=== PATIENT | male | born 1980 | race Two or more races ===

== ENCOUNTER 2017-04-02 19:34 | Emergency (ER) | payer OTHER ==
[~2017-04-02] VITALS: Ht 160 cm; Wt 65.8 kg
[~2017-04-02 19:34] MED LIST: ACET325T9 PO; SULF1TAB24 PO
[2017-04-02 19:50] VITALS: BP 143/90
[2017-04-02] MEDS ORDERED: AMOX875T PO (20:41)
[2017-04-02] MEDS ORDERED: LIDO20SO PO (20:41)
--- NOTE | 2017-04-02 20:42 | PHYS DOC ---
Past Medical History Past Medical History: GERD, TB, Other Additional Past Medical Histor: Ulcers , back pain Past Surgical History: No Surgical History Alcohol Use: None Drug Use: None Adult General Chief Complaint Chief Complaint: SORE THROAT HPI HPI Patient is a 36 year old male with history of tuberculosis and treated, acid reflex, who presents today with sore throat and sores in the mouth that began 3 days ago. Patient denies any fever or coughing. Review of Systems Review of Systems Constitutional: See history of present illness Eyes: Denies change in visual acuity, redness, or eye pain [] HENT: Sores in the mouth and sore throat [] Respiratory: Denies cough or shortness of breath [] Cardiovascular: No additional information not addressed in HPI [] GI: Denies abdominal pain, nausea, vomiting, bloody stools or diarrhea [] : Denies dysuria or hematuria [] Musculoskeletal: Denies back pain or joint pain [] Integument: Denies rash or skin lesions [] Neurologic: Denies headache, focal weakness or sensory changes [] Endocrine: Denies polyuria or polydipsia [] Allergies Allergies Allergies Coded Allergies Type Severity Reaction Last Updated Verified No Known Drug Allergies 09/16/16 No Physical Exam Physical Exam Constitutional: Well developed, well nourished, no acute distress, non-toxic appearance. [] HENT: Normocephalic, atraumatic, bilateral external ears normal, oropharynx moist, no oral exudates, nose normal. [] moderate erythema to posterior pharynx stomatitis lesion on lower inner lip Eyes: PERRLA, EOMI, conjunctiva normal, no discharge. [] Neck: Normal range of motion, no tenderness, supple, no stridor. [] Cardiovascular:Heart rate regular rhythm, no murmur [] Lungs & Thorax: Bilateral breath sounds clear to auscultation [] Abdomen: Bowel sounds normal, soft, no tenderness, no masses, no pulsatile masses. [] Skin: Warm, dry, no erythema, no rash. [] Back: No tenderness, no CVA tenderness. [] Extremities: No tenderness, no cyanosis, no clubbing, ROM intact, no edema. [] Neurologic: Alert and oriented X 3, normal motor function, normal sensory function, no focal deficits noted. [] Psychologic: Affect normal, judgement normal, mood normal. [] Current Patient Data Vital Signs Vital Signs Date Time Temp Pulse Resp B/P (MAP) Pulse Ox O2 Delivery O2 Flow Rate FiO2 04/02/17 19:50 98.1 72 20 97 Room Air 98.1 EKG EKG [] Radiology/Procedures Radiology/Procedures [] Course & Med Decision Making Course & Med Decision Making Pertinent Labs and Imaging studies reviewed. (See chart for details) Patient has stomatitis and pharyngitis. Discharged with amoxicillin and lidocaine viscous. Follow-up with his own PCP in 1-2 weeks. Provided return precautions and discharged in stable condition. Dragon Disclaimer Dragon Disclaimer This electronic medical record was generated, in whole or in part, using a voice recognition dictation system. Departure Departure Impression: Primary Impression: Pharyngitis Additional Impression: Stomatitis Disposition: 01 HOME, SELF-CARE Condition: STABLE Referrals: EMILIANO YU MD (PCP) Follow-up with your own doctor in one week Patient Instructions: Stomatitis, [id number], Viral and Bacterial Pharyngitis , [id number] Additional Instructions: You were seen for pharyngitis and stomatitis. Please complete your antibiotics. Take Tylenol/ Motrin as needed for pain or fever. Use the prescribed lidocaine as needed for pain in your mouth and throat. Follow-up with the primary care doctor in the next 7 days. Scripts Lidocaine Hcl (LIDOCAINE HCL VISCOUS) 20 Mg/1 Ml Solution 5 ML PO TID, #100 ML Prov: LOWELL PROCTOR APRN 04/02/17 Amoxicillin (AMOXICILLIN) 875 Mg Tablet 1 TAB PO BID, #20 TAB Prov: LOWELL PROCTOR APRN 04/02/17 Problem Qualifiers Primary Impression: Pharyngitis Pharyngitis/tonsillitis etiology: unspecified etiology Qualified Codes: J02.9 - Acute pharyngitis, unspecified LOWELL PROCTOR APRN April 02, 2017 20:42
[2017-04-03 07:55] LABS: NEGATIVE OBC STREP NEG; POSITIVE OBC STREP POS
== END 2017-04-02 20:52 | disposition home or self-care (01) ==
LOC: ER 19:34
DX: J02.9 Acute pharyngitis, unspecified (principal); K12.1 Other forms of stomatitis; K21.9 Gastro-esophageal reflux disease without esophagitis
CPT/HCPCS: 87070; 87880; 99283

== ENCOUNTER 2017-08-14 13:38 | Emergency (ER) | payer OTHER ==
[~2017-08-14] VITALS: Ht 160 cm; Wt 65.8 kg
[~2017-08-14 13:38] MED LIST changes: +AMOX875T PO; +LIDO20SO PO
[2017-08-14 13:40] VITALS: BP 146/97
--- NOTE | 2017-08-14 13:50 | PHYS DOC ---
Past Medical History Past Medical History: GERD, TB, Other Additional Past Medical Histor: Ulcers , back pain Past Surgical History: No Surgical History Alcohol Use: None Drug Use: None Adult General Chief Complaint Chief Complaint: SORE THROAT HPI HPI Patient is a 36 year old female presents to the ED complaining of sore throat 3 days. Patient states he has had a sore throat off and on over the last 6 months. Complains of pain with swallowing. Associated symptoms include rhinorrhea. Denies cough, shortness of breath, chest pain, dizziness, weakness, fever, headache or vision changes. Review of Systems Review of Systems Constitutional: Denies fever or chills [] Eyes: Denies change in visual acuity, redness, or eye pain [] HENT: Complains of sore throat. [] Respiratory: Denies cough or shortness of breath [] Cardiovascular: No additional information not addressed in HPI [] GI: Denies abdominal pain, nausea, vomiting, bloody stools or diarrhea [] : Denies dysuria or hematuria [] Musculoskeletal: Denies back pain or joint pain [] Integument: Denies rash or skin lesions [] Neurologic: Denies headache, focal weakness or sensory changes [] Endocrine: Denies polyuria or polydipsia [] Allergies Allergies Allergies Coded Allergies Type Severity Reaction Last Updated Verified No Known Drug Allergies 09/16/16 No Physical Exam Physical Exam Constitutional: Well developed, well nourished, no acute distress, non-toxic appearance. [] HENT: Normocephalic, atraumatic, bilateral external ears normal, oropharynx moist, MILD PHARYNGEAL ERYTHEMA. no oral exudates, nose normal. [] Eyes: PERRLA, EOMI, conjunctiva normal, no discharge. [] Neck: Normal range of motion, no tenderness, supple, no stridor. [] Cardiovascular:Heart rate regular rhythm, no murmur [] Lungs & Thorax: Bilateral breath sounds clear to auscultation [] Abdomen: Bowel sounds normal, soft, no tenderness, no masses, no pulsatile masses. [] Skin: Warm, dry, no erythema, no rash. [] Back: No tenderness, no CVA tenderness. [] Extremities: No tenderness, no cyanosis, no clubbing, ROM intact, no edema. [] Neurologic: Alert and oriented X 3, normal motor function, normal sensory function, no focal deficits noted. [] Psychologic: Affect normal, judgement normal, mood normal. [] Current Patient Data Vital Signs Vital Signs Date Time Temp Pulse Resp B/P (MAP) Pulse Ox O2 Delivery O2 Flow Rate FiO2 08/14/17 13:40 98.1 96 18 94 Room Air 98.1 Lab Values Laboratory Tests Test 08/14/17 13:53 Influenza Type A Antigen Negative (NEGATIVE) Influenza Type B Antigen Negative (NEGATIVE) EKG EKG [] Radiology/Procedures Radiology/Procedures [] Course & Med Decision Making Course & Med Decision Making Pertinent Labs and Imaging studies reviewed. (See chart for details) []Negative rapid strep. Will treat with Medrol Dosepak outpatient. Patient had similar symptoms twice in the past 6 months. Discussed follow-up with PCP and possible specialist if symptoms continue. Discussed reasons to return to the ED. Patient understands and agrees with plan. Dragon Disclaimer Dragon Disclaimer This electronic medical record was generated, in whole or in part, using a voice recognition dictation system. Departure Departure Impression: Primary Impression: Sore throat Additional Impression: Viral illness Disposition: 01 HOME, SELF-CARE Condition: STABLE Referrals: EMILIANO YU MD (PCP) Patient Instructions: Viral and Bacterial Pharyngitis Scripts Methylprednisolone (MEDROL) 4 Mg Tab.ds.pk 1 PKG PO UD, #1 PKG Prov: MARKO DOTSON 08/14/17 Problem Qualifiers MARKO DOTSON Aug 14, 2017 13:50
[2017-08-14 14:20] LABS: OBC FLU VALID
[2017-08-14] MEDS ORDERED: METH4TAB2 PO (14:36)
[2017-08-15 08:27] LABS: NEGATIVE OBC STREP NEG; POSITIVE OBC STREP POS
== END 2017-08-14 14:37 | disposition home or self-care (01) ==
LOC: ER 13:38
DX: J02.9 Acute pharyngitis, unspecified (principal); B34.9 Viral infection, unspecified; K21.9 Gastro-esophageal reflux disease without esophagitis
CPT/HCPCS: 87070; 87804; 87880; 99284

== ENCOUNTER 2017-09-25 11:53 | Emergency (ER) | payer OTHER ==
[~2017-09-25] VITALS: Ht 160 cm; Wt 67.1 kg
[~2017-09-25 11:53] MED LIST changes: +METH4TAB2 PO
[2017-09-25 12:20] VITALS: BP 113/67
[2017-09-25 12:55] LABS: NEGATIVE OBC STREP NEG; POSITIVE OBC STREP POS
--- NOTE | 2017-09-25 13:26 | PHYS DOC ---
Past Medical History Past Medical History: GERD, Hypertension, TB, Other Additional Past Medical Histor: Ulcers , back pain Past Surgical History: No Surgical History Alcohol Use: None Drug Use: None Adult General Chief Complaint Chief Complaint: SORE THROAT HPI HPI Patient is a 36 year old male presents to the emergency room stating he's had a sore throat with a fever for the last 3 days. He states he has not taken anything for his temperature nor has he taken anything for the sore throat. He does state he has generalized body aches and discomfort. Denies any frontal or maxillary sinus tenderness denies any cough or congestion. Review of Systems Review of Systems Constitutional: Fever Eyes: Denies change in visual acuity, redness, or eye pain [] HENT: Denies nasal congestion C/o sore throat [] Respiratory: Denies cough or shortness of breath [] Cardiovascular: No additional information not addressed in HPI [] GI: Denies abdominal pain, nausea, vomiting, bloody stools or diarrhea [] : Denies dysuria or hematuria [] Musculoskeletal: Denies back pain or joint pain [] Integument: Denies rash or skin lesions [] Neurologic: Denies headache, focal weakness or sensory changes [] Endocrine: Denies polyuria or polydipsia [] All other systems were reviewed and found to be within normal limits, except as documented in this note. Allergies Allergies Allergies Coded Allergies Type Severity Reaction Last Updated Verified codeine Allergy Mild "RASH" 09/25/17 No Physical Exam Physical Exam Constitutional: Well developed, well nourished, no acute distress, non-toxic appearance. [] HENT: Normocephalic, atraumatic, bilateral external ears normal, oropharynx moist, no oral exudates, nose normal. Bilateral tympanic membranes appear to be normal. Throat with exudate noted on the right with erythematous. Eyes: PERRLA, EOMI, conjunctiva normal, no discharge. [] Neck: Normal range of motion, no tenderness, supple, no stridor. [] Cardiovascular:Heart rate regular rhythm, no murmur [] Lungs & Thorax: Bilateral breath sounds clear to auscultation [] Extremities: No tenderness, no cyanosis, no clubbing, ROM intact, no edema. [] Neurologic: Alert and oriented X 3, normal motor function, normal sensory function, no focal deficits noted. [] Psychologic: Affect normal, judgement normal, mood normal. [] Current Patient Data Vital Signs Vital Signs Date Time Temp Pulse Resp B/P (MAP) Pulse Ox O2 Delivery O2 Flow Rate FiO2 09/25/17 12:20 99.7 99 20 97 Room Air 99.7 Lab Values Laboratory Tests Test 09/25/17 12:18 Group A Streptococcus Rapid Negative (NEGATIVE) EKG EKG [] Radiology/Procedures Radiology/Procedures [] Course & Med Decision Making Course & Med Decision Making Pertinent Labs and Imaging studies reviewed. (See chart for details) Rapid strep was negative. Patient with no anterior cervical adenopathy noted. Patient was provided with discharge instructions ymchal regimens and follow-up recommendations. Recommended ibuprofen and Tylenol for pain and discomfort also recommended constructs and throat lozenges to soothe the throat with warm salt water gargles 4 times a day. I've spoken with the patient and/or caregivers. I've explained the patient's condition, diagnosis and treatment plan based on information available to me at this time. I've answered the patient's and/or caregivers questions and addressed any concerns. The patient and/or caregivers have a good understanding the patient's diagnosis, condition and treatment plan as can be expected at this point. Vital signs have been stabilized. The patient's condition is stable for discharge from the emergency department. The patient will pursue further outpatient evaluation with her primary care provider or other designated consulting physician as outlined in the discharge instructions. Patient and/or caregivers are agreeable to this plan of care and follow-up instructions have been explained in detail. The patient and/or caregivers have received these instructions in written format and expressed understanding of these discharge instructions. The patient and her caregivers are aware that if any significant change in condition or worsening of symptoms should prompt him to immediately return to this of the closest emergency department. If an emergent department is not readily available I would encourage him to call 911.[] Dragon Disclaimer Dragon Disclaimer This electronic medical record was generated, in whole or in part, using a voice recognition dictation system. Departure Departure Impression: Primary Impression: Pharyngitis Disposition: HOME, SELF-CARE Condition: STABLE Referrals: EMILIANO YU MD (PCP) Patient Instructions: Viral and Bacterial Pharyngitis, [id number] Additional Instructions: Activity as tolerated. Tylenol or ibuprofen for fever chills otherwise body aches and discomfort. Cough drops and throat lozenges without soothe the throat. Warm salt water gargles 4 times a day. Follow-up primary care physician in the next 3-5 days. Return back to emergency percent symptoms become worse. ADELINA BUTT APRN Sep 25, 2017 13:26
== END 2017-09-25 13:50 | disposition home or self-care (01) ==
LOC: ER 11:53
DX: J02.9 Acute pharyngitis, unspecified (principal); K21.9 Gastro-esophageal reflux disease without esophagitis; I10 Essential (primary) hypertension; Z88.5 Allergy status to narcotic agent
CPT/HCPCS: 87070; 87880; 99283

== ENCOUNTER 2018-07-11 13:36 | Emergency (ER) | payer OTHER ==
[~2018-07-11] VITALS: Ht 177.8 cm; Wt 67.1 kg
[2018-07-11] MEDS ORDERED: MECL25TA3 PO (14:51)
--- NOTE | 2018-07-11 14:56 | PHYS DOC ---
Past Medical History Past Medical History: GERD, Hypertension, TB, Other Additional Past Medical Histor: Ulcers , back pain Past Surgical History: No Surgical History Alcohol Use: None Drug Use: None Adult General Chief Complaint Chief Complaint: DIZZY/LIGHT HEADED HPI HPI Patient is a 37 year old male presenting with chief complaint of posterior headache as well as dizziness he feels like the room is spinning when he turns his head around a certain direction and in addition to that he is feeling some radiating in his left ear she says he does have frequent headaches almost every day but usually not associated with dizziness with ringing in the ears no double vision arms and legs feel normal no numbness or tingling symptoms are overall pretty mild to moderate Review of Systems Review of Systems Constitutional: Denies fever or chills [] Eyes: Denies change in visual acuity, redness, or eye pain [] Yes GI: Denies abdominal pain, nausea, vomiting, bloody stools or diarrhea [] : Denies dysuria or hematuria [] Neurologic: Denies headache, focal weakness or sensory changes [] Endocrine: Denies polyuria or polydipsia [] All other systems were reviewed and found to be within normal limits, except as documented in this note. Current Medications Current Medications Current Medications Medications (Trade) Dose Ordered Sig/Adeline Start Time Stop Time Status Last Admin Dose Admin Ketorolac Tromethamine (Toradol 15mg Vial) 15 mg 1X ONCE 07/11/18 15:00 07/11/18 15:01 Meclizine HCl (Antivert) 25 mg 1X ONCE 07/11/18 15:00 07/11/18 15:01 Allergies Allergies Allergies Coded Allergies Type Severity Reaction Last Updated Verified codeine Allergy Mild "RASH" 09/25/17 No Physical Exam Physical Exam Constitutional: Well developed, well nourished, no acute distress, non-toxic appearance. [] HENT: Normocephalic, atraumatic, bilateral external ears normal, oropharynx moist, no oral exudates, nose normal. [] Eyes: PERRLA, EOMI, conjunctiva normal, no discharge. [] Neck: Normal range of motion, no tenderness, supple, no stridor. [] Cardiovascular:Heart rate regular rhythm, no murmur [] Lungs & Thorax: Bilateral breath sounds clear to auscultation [] Abdomen: Bowel sounds normal, soft, no tenderness, no masses, no pulsatile masses. [] Skin: Warm, dry, no erythema, no rash. [] Extremities: No tenderness, no cyanosis, no clubbing, ROM intact, no edema. [] Neurologic: Alert and oriented X 3, normal motor function, normal sensory function, no focal deficits noted. [][id number] in tact crnaial nerves are intact. Psychologic: Affect normal, judgement normal, mood normal. [] Current Patient Data Vital Signs Vital Signs Date Time Temp Pulse Resp B/P (MAP) Pulse Ox O2 Delivery O2 Flow Rate FiO2 07/11/18 14:10 98.0 72 20 141/90 (107) 97 Room Air 98.0 EKG EKG [] Radiology/Procedures Radiology/Procedures [] Course & Med Decision Making Course & Med Decision Making Pertinent Labs and Imaging studies reviewed. (See chart for details) []37-year-old male presenting with some mild posterior headache as well as the ear is ringing in the left and some dizziness that sounds a peripheral vertigo patient was given meclizine and Toradol recheck a blood sugar he is very well- appearing overall I suspect peripheral vertigo the patient was reassured and was improving somewhat at the time of discharge Dragon Disclaimer Dragon Disclaimer This electronic medical record was generated, in whole or in part, using a voice recognition dictation system. Departure Departure Impression: Primary Impression: Vertigo Disposition: 01 HOME, SELF-CARE Condition: IMPROVED Patient Instructions: Vertigo, [id number] Scripts Meclizine Hcl (MECLIZINE HCL) 25 Mg Tablet 25 MG PO PRN TID PRN for DIZZINESS, #30 dizziness Prov: GERALD OLEARY MD 07/11/18 GERALD OLEARY MD Jul 11, 2018 14:56
[2018-07-11] MEDS ORDERED: MECLIZINE HCL 12.5 MG TABLET. PO ONE (15:00)
[2018-07-11] MEDS ORDERED: KETOROLAC 15 MG/ML VIAL. IV ONE (15:00)
[2018-07-11 15:35] VITALS: BP 127/78
== END 2018-07-11 15:49 | disposition home or self-care (01) ==
LOC: ER 13:36
DX: R42 Dizziness and giddiness (principal); R51 Headache; H92.02 Otalgia, left ear; I10 Essential (primary) hypertension; K21.9 Gastro-esophageal reflux disease without esophagitis; Z88.5 Allergy status to narcotic agent
CPT/HCPCS: 82962; 96374; 99284; J1885; J8597

== ENCOUNTER 2018-12-15 13:56 | Emergency (ER) | payer OTHER ==
[~2018-12-15] VITALS: Ht 160 cm; Wt 76.2 kg
[~2018-12-15 13:56] MED LIST changes: +MECL25TA3 PO
[2018-12-15 14:14] VITALS: BP 127/78
[2018-12-15] MEDS ORDERED: AMOX875T PO (14:41)
--- NOTE | 2018-12-15 14:41 | PHYS DOC ---
Past Medical History Past Medical History: GERD, Hypertension, TB, Other Additional Past Medical Histor: Ulcers , back pain (RUDY MONTENEGRO APRN) Past Surgical History: No Surgical History (RUDY MONTENEGRO APRN) Alcohol Use: None Drug Use: None (RUDY MONTENEGRO APRN) Adult General Chief Complaint Chief Complaint: SORE THROAT HPI HPI Patient is a 38 year old male, accompanied by his family, who presents to the ER with complaints of right ear pain, and sore throat with nasal congestion for the last week. Pt denies any cough, shortness of breath, nausea, vomiting, diarrhea, abdominal pain, or rash. Pt states he has felt hot but has not taken his temperature. (RUDY MONTENEGRO APRN) Review of Systems Review of Systems Constitutional: Denies fever or chills, reports feeling hot [] Eyes: Denies redness, or eye pain [] HENT: See HPI Respiratory: Denies cough or shortness of breath [] Cardiovascular: No additional information not addressed in HPI [] GI: Denies abdominal pain, nausea, vomiting, or diarrhea [] Musculoskeletal: Denies back pain or joint pain [] Integument: Denies rash or skin lesions [] Neurologic: Denies headache, focal weakness or sensory changes [] (RUDY MONTENEGRO APRN) Allergies Allergies Allergies Coded Allergies Type Severity Reaction Last Updated Verified codeine Allergy Mild "RASH" 09/25/17 No (LUIZ ROSA DO) Physical Exam Physical Exam Constitutional: Well developed, well nourished, no acute distress, non-toxic appearance. [] HENT: Normocephalic, atraumatic, bilateral external ears normal, L TM normal, R TM effusion with purulent fluid no perforation noted, erythema of posterior pharynx, oropharynx moist, no oral exudates, nose normal. [] Eyes: PERRLA, conjunctiva normal, no discharge. [] Neck: Normal range of motion, right anterior lymph node TTP, no stridor. [] Cardiovascular:Heart rate regular rhythm, no murmur [] Lungs & Thorax: Bilateral breath sounds clear to auscultation [] Skin: Warm, dry, no erythema, no rash. [] Extremities: No cyanosis, no clubbing, ROM intact Neurologic: Alert and oriented X 3, normal motor function, normal sensory function, no focal deficits noted. [] Psychologic: Affect normal, judgement normal, mood normal. [] (RUDY MONTENEGRO APRN) Current Patient Data Vital Signs Vital Signs Date Time Temp Pulse Resp B/P (MAP) Pulse Ox O2 Delivery O2 Flow Rate FiO2 12/15/18 14:14 98.7 101 18 127/78 (94) 100 Room Air 98.7 (ROSALUIZ ROSS DO) EKG EKG [] (RUDY MONTENEGRO APRN) Radiology/Procedures Radiology/Procedures [] (RUDY MONTENEGRO APRN) Course & Med Decision Making Course & Med Decision Making Pertinent Labs and Imaging studies reviewed. (See chart for details) Dx: R otitis media, URI, pharyngitis Prescription written for amoxicillin. Tylenol or ibuprofen as needed for pain/ fever. Increase fluids. Follow up with PCP if sx persist, return to ER if sx worsen. Patient verbalized an understanding of home care, medications, follow-up, and return to ED instructions and was in agreement with the plan of care. [] (RUDY MONTENEGRO APRN) Dragon Disclaimer Dragon Disclaimer This electronic medical record was generated, in whole or in part, using a voice recognition dictation system. (RUDY MONTENEGRO APRN) Departure Departure Impression: Primary Impression: Pharyngitis Additional Impressions: URI (upper respiratory infection) OM (otitis media), acute Disposition: 01 HOME, SELF-CARE Condition: STABLE Referrals: EMILIANO YU MD (PCP) Patient Instructions: Otitis Media, Adult, Upper Respiratory Infection, Adult, [id number] Additional Instructions: Fill prescription(s) and use as directed. Recommend use of a Cool mist humidifier in room at bedtime. Alternate Tylenol or ibuprofen as needed for pain /fever. Increase clear fluids. Avoid airway triggers such as smoke, fragrance, dust, and pollen. May take [id number] cough suppressants as needed. Follow -up with your primary care doctor symptoms persist, return to the ER symptoms worsen. Scripts Amoxicillin (AMOXICILLIN) 875 Mg Tablet 1 TAB PO BID, #20 TAB 0 Refills Prov: RUDY MONTENEGRO APRN 12/15/18 Attending Signature Attending Signature I have reviewed the PA/DELIVERER MERCHANDISE's note and plan of care. I was available for consultation as needed during the patient's visit in the emergency department. I agree with the clinical impression, plan, and disposition. (LUIZ ROSA DO) Problem Qualifiers Primary Impression: Pharyngitis Pharyngitis/tonsillitis etiology: unspecified etiology Qualified Codes: J02.9 - Acute pharyngitis, unspecified Additional Impressions: URI (upper respiratory infection) URI type: unspecified URI Qualified Codes: J06.9 - Acute upper respiratory infection, unspecified OM (otitis media), acute Otitis media type: suppurative Laterality: right Recurrence: not specified as recurrent Spontaneous tympanic membrane rupture: without spontaneous rupture Qualified Codes: H66.001 - Acute suppurative otitis media without spontaneous rupture of ear drum, right ear RUDY MONTENEGRO APRN Dec 15, 2018 14:41 LUIZ ROSA DO Dec 15, 2018 15:55
== END 2018-12-15 14:53 | disposition home or self-care (01) ==
LOC: ER 13:56
DX: H66.001 Acute suppurative otitis media without spontaneous rupture of ear drum, right ear (principal); J02.9 Acute pharyngitis, unspecified; K21.9 Gastro-esophageal reflux disease without esophagitis; I10 Essential (primary) hypertension; Z88.5 Allergy status to narcotic agent
CPT/HCPCS: 99283

== ENCOUNTER 2019-10-13 20:24 | Emergency (ER) | payer OTHER ==
[~2019-10-13] VITALS: Ht 167.6 cm; Wt 76.2 kg
[2019-10-13 20:41] VITALS: BP 127/78
--- NOTE | 2019-10-13 22:07 | PHYS DOC ---
Past Medical History Past Medical History: GERD, Hypertension, TB, Other Additional Past Medical Histor: Ulcers , back pain Past Surgical History: No Surgical History Alcohol Use: None Drug Use: None Adult General Chief Complaint Chief Complaint: EARACHE/EAR PAIN [facility] HPI Patient is a 38 year old male who presents to the emergency department with complaints of ane ulceration on the left side of his posterior lateral tongue for the last week. Patient also complains of left ear pain, and painful swallowing. He denies any decreased hearing, , patient states that one of his children had strep pharyngitis a week ago and he is concerned that he also has the illness. He denies any fever, and all pain, cough, shortness of breath, palpitations, chest pain, headache, nausea, vomiting, diarrhea, abdominal pain. Patient denies any difficulty swallowing. He currently rates his pain 8 out of 10 when he swallows. He denies alleviating factors. All other ROS is neg unless otherwise noted in HPI. Review of Systems Review of Systems See Above Allergies Allergies Allergies Coded Allergies Type Severity Reaction Last Updated Verified codeine Allergy Mild "RASH" 09/25/17 No Physical Exam Physical Exam See Above Constitutional: Well developed, well nourished, no acute distress, non-toxic appearance. [] HENT: Normocephalic, atraumatic, bilateral external ears normal, bilateral TMs normal, mild erythema of posterior pharynx, tonsils normal, oropharynx moist, no oral exudates, nose normal; 1 cm diameter apthous ulcer noted to posterior lateral left tongue, no surrounding gingival erythema or edema, no obvious dental infection or caries[] Eyes: PERRLA, EOMI, conjunctiva normal, no discharge. [] Neck: Normal range of motion, no tenderness, supple, no stridor. [] Cardiovascular:Heart rate regular rhythm, no murmur [] Lungs & Thorax: Bilateral breath sounds clear to auscultation respirations regular, speaking full sentences [] Skin: Warm, dry, no erythema, no rash. [] Back: No tenderness Extremities: No cyanosis, ROM intact Neurologic: Alert and oriented X 3, no focal deficits noted. [] Psychologic: Affect normal, judgement normal, mood normal. [] Current Patient Data Vital Signs Vital Signs Date Time Temp Pulse Resp B/P (MAP) Pulse Ox O2 Delivery O2 Flow Rate FiO2 12/2/19 20:41 97.9 89 20 127/78 (94) 95 97.9 EKG EKG [] Radiology/Procedures Radiology/Procedures Rapid strep testing negative[] Course & Med Decision Making Course & Med Decision Making Pertinent Labs and Imaging studies reviewed. (See chart for details) [] Dragon Disclaimer Dragon Disclaimer This electronic medical record was generated, in whole or in part, using a voice recognition dictation system. Departure Departure Impression: Primary Impression: Pharyngitis Additional Impression: Aphthous ulcer of tongue Disposition: HOME, SELF-CARE Condition: STABLE Referrals: EMILIANO YU MD (PCP) Patient Instructions: Oral Ulcers, Viral and Bacterial Pharyngitis, [id number] Additional Instructions: Tylenol or ibuprofen as needed for pain. Recommend you follow a bland diet until the ulcer on your tongue and has healed completely. Avoid carbonated and acetic foods as well. Salt water gargles may help with throat and tongue discomfort. Follow-up with your primary care doctor in 1-2 days, return to the ER if symptoms worsen. Problem Qualifiers Primary Impression: Pharyngitis Pharyngitis/tonsillitis etiology: unspecified etiology Qualified Codes: J02.9 - Acute pharyngitis, unspecified RUDY MONTENEGRO SENIOR COPYWRITER Oct 13, 2019 22:07
== END 2019-10-13 22:20 | disposition home or self-care (01) ==
LOC: ER 20:24
DX: K12.0 Recurrent oral aphthae (principal); J02.9 Acute pharyngitis, unspecified; I10 Essential (primary) hypertension; K21.9 Gastro-esophageal reflux disease without esophagitis; Z86.11 Personal history of tuberculosis; Z88.5 Allergy status to narcotic agent
CPT/HCPCS: 87070; 87880; 99283

== ENCOUNTER 2021-01-06 11:20 | Emergency (ER) | payer OTHER ==
[~2021-01-06] VITALS: Ht 162.6 cm; Wt 73.0 kg
[~2021-01-06 11:20] MED LIST changes: +MECL-75 PO; -MECL25TA3 PO
--- NOTE | 2021-01-06 12:16 | RAD ---
EXAM: 3 Views Left Shoulder DATE: 01/06/2021 12:00 PM INDICATION: Reason: fall down 3 stairs last week, pain left shoulder / Spl. Instructions: / History: COMPARISON: No Prior FINDINGS: There is no evidence for acute fracture or dislocation. AC joint is congruent. Humeral head is not hi gh riding. Posterior lateral left sixth and seventh rib fractures are not well seen, possibly chronic . IMPRESSION: 1. No acute left shoulder fracture or dislocation. 2. Posterior lateral left sixth and seventh rib fractures are not well seen, possibly chronic. Electronically signed by: Byron Arango MD (01/06/2021 12:13 PM) [id number]
[2021-01-06] MEDS ORDERED: METH4TAB2 PO (12:49)
[2021-01-06] MEDS ORDERED: CYCL10TA2 PO (12:49)
[2021-01-06] MEDS ORDERED: NAPR-514 PO (12:49)
--- NOTE | 2021-01-06 12:50 | PHYS DOC ---
Past Medical History Past Medical History: GERD, Hypertension, TB, Other Additional Past Medical Histor: Ulcers , back pain Past Surgical History: No Surgical History Smoking Status: Never Smoker Alcohol Use: None Drug Use: None General Adult EDM: Chief Complaint: MECHANICAL FALL HPI: HPI: Patient is a 40 year old male who presents to the ED today complaining of a sharp intermittent 8 out of 10 left shoulder pain, symptoms began last week after he fell down 3 steps. Patient denies any loss of consciousness. States the pain is worse on range of motion. States immobilization has helped with the pain. Review of Systems: Review of Systems: Constitutional: Denies fever or chills. [] GI: Denies abdominal pain, nausea, vomiting, bloody stools or diarrhea. [] : Denies dysuria. [] Musculoskeletal: Reports left shoulder pain Integument: Denies rash. [] Neurologic: Denies headache, focal weakness or sensory changes. [] Psychiatric: Denies depression or anxiety. [] Heart Score: Risk Factors: Risk Factors: DM, Current or recent (<one month) smoker, HTN, HLP, family history of CAD, obesity. Risk Scores: Score 0 - 3: 2.5% MACE over next 6 weeks - Discharge Home Score 4 - 6: 20.3% MACE over next 6 weeks - Admit for Clinical Observation Score 7 - 10: 72.7% MACE over next 6 weeks - Early Invasive Strategies Allergies: Allergies: Allergies Coded Allergies Type Severity Reaction Last Updated Verified codeine Allergy Mild "RASH" 09/25/17 No Physical Exam: PE: Constitutional: Well developed, well nourished, no acute distress, non-toxic appearance. [] Skin: Warm, dry, no erythema, no rash. [] Back: No tenderness, no CVA tenderness. [] Extremities: Left shoulder with no obvious deformity, no edema, no ecchymosis. No tenderness on exam, full range of motion to the left shoulder. +2 left radial pulse. Cap refill less than 2 seconds in left fingers. Neurologic: Alert and oriented X 3, normal motor function, normal sensory function, no focal deficits noted. [] Psychologic: Affect normal, judgement normal, mood normal. [] Current Patient Data: Vital Signs: Vital Signs Date Time Temp Pulse Resp B/P (MAP) Pulse Ox O2 Delivery O2 Flow Rate FiO2 01/06/21 11:40 98.1 81 18 137/88 (104) 98 Room Air 98.1 EKG: EKG: [] Radiology/Procedures: Radiology/Procedures: []PROCEDURE: SHOULDER 2+V LEFT EXAM: 3 Views Left Shoulder DATE: 01/06/2021 12:00 PM INDICATION: Reason: fall down 3 stairs last week, pain left shoulder / Spl. Instructions: / History: COMPARISON: No Prior FINDINGS: There is no evidence for acute fracture or dislocation. AC joint is congruent. Humeral head is not high riding. Posterior lateral left sixth and seventh rib fractures are not well seen, possibly chronic. IMPRESSION: 1. No acute left shoulder fracture or dislocation. 2. Posterior lateral left sixth and seventh rib fractures are not well seen, possibly chronic. Electronically signed by: Byron Arango MD (01/06/2021 12:13 PM) [id number] DICTATED and SIGNED BY: BYRON ARANGO MD DATE: 01/06/21 [id number] Course & Med Decision Making: Course & Med Decision Making Pertinent Labs and Imaging studies reviewed. (See chart for details) This is a 40-year-old male patient presented to the ED today with left shoulder pain status post falling a week ago. Left shoulder x-rays were negative for any acute findings, noted for old fractures of the sixth and seventh posterior ribs. Patient denies any rib pain. No tenderness to the ribs on exam. Discharge to home. Follow-up with PCP/ orthopedic doctor. Ice elevation encouraged. Prescription for Medrol Dosepak naproxen and Flexeril provided Dragon Disclaimer: Dragon Disclaimer: This electronic medical record was generated, in whole or in part, using a voice recognition dictation system. Departure Departure Impression: Primary Impression: Fall down steps Qualified Codes: W10.8XXA - Fall (on) (from) other stairs and steps, initial encounter Additional Impression: Contusion of shoulder, left Qualified Codes: S40.012A - Contusion of left shoulder, initial encounter Disposition: 01 DC HOME SELF CARE/HOMELESS Condition: STABLE Referrals: EMILIANO YU MD (PCP) BHARATH MORENO MD follow up in 1 week Patient Instructions: Contusion, [id number] Additional Instructions: You were seen for left shoulder pain, your x-rays are negative for any acute findings, you were noted to have old fractures of the sixth and seventh ribs. Take the prescribed medications as ordered. Please follow-up with the provided orthopedic doctor or your own doctor in 1 to 2 weeks try to ice and elevate the extremity. Scripts Cyclobenzaprine Hcl (CYCLOBENZAPRINE HCL) 10 Mg Tablet 1 TAB PO TID, #30 TAB Prov: LOWELL PROCTOR APRN 01/06/21 Naproxen (NAPROXEN) 500 Mg Tablet 1 TAB PO BID for pain, #30 TAB 0 Refills Prov: LOWELL PROCTOR APRN 01/06/21 Methylprednisolone (MEDROL) 4 Mg Tab.ds.pk 1 PKG PO UD, #1 PKG Prov: LOWELL PROCTOR APRN 01/06/21 LOWELL PROCTOR APRN Jan 06, 2021 12:50
[2021-01-06 13:16] VITALS: BP 139/81
== END 2021-01-06 13:16 | disposition home or self-care (01) ==
LOC: ER 11:20
DX: S40.012A Contusion of left shoulder, initial encounter (principal); K21.9 Gastro-esophageal reflux disease without esophagitis; I10 Essential (primary) hypertension; Z88.5 Allergy status to narcotic agent; W10.8XXA Fall (on) (from) other stairs and steps, initial encounter; Y93.89 Activity, other specified; Y92.89 Other specified places as the place of occurrence of the external cause; Y99.8 Other external cause status
CPT/HCPCS: 73030; 99283

== ENCOUNTER 2021-11-16 14:40 | Emergency (ER) | payer OTHER ==
[~2021-11-16] VITALS: Ht 160 cm; Wt 76.2 kg
[~2021-11-16 14:40] MED LIST changes: +CYCL10TA19 PO; +NAPR-514 PO
[2021-11-16] MEDS ORDERED: IV NORMAL SALINE 1000ML BAG 1,000 ML IV ONE ×2 (17:00→19:00)
--- NOTE | 2021-11-16 17:10 | PHYS DOC ---
Past Medical History Past Medical History: GERD, Hypertension, TB, Other Additional Past Medical Histor: Ulcers , back pain Past Surgical History: No Surgical History Smoking Status: Never Smoker Alcohol Use: None Drug Use: None General Adult EDM: Chief Complaint: COUGH HPI: HPI: Patient is a 41 year old male who presents with cough, body aches, sore throat, fever x3 days. Patient denies chest pain, shortness of breath, nausea/vomiting/diarrhea. Patient reports he took Tylenol this morning for body aches. Temperature on arrival was 100.2. Patient states he was fully vaccinated for COVID-19. Denies all medical history. Review of Systems: Review of Systems: Constitutional: Denies fever or chills. [] Eyes: Denies change in visual acuity. [] HENT: Denies nasal congestion or sore throat. [] Respiratory: Denies cough or shortness of breath. [] Cardiovascular: Denies chest pain or edema. [] GI: Denies abdominal pain, nausea, vomiting, bloody stools or diarrhea. [] : Denies dysuria. [] Musculoskeletal: Denies back pain or joint pain. [] Integument: Denies rash. [] Neurologic: Denies headache, focal weakness or sensory changes. [] Endocrine: Denies polyuria or polydipsia. [] Lymphatic: Denies swollen glands. [] Psychiatric: Denies depression or anxiety. [] Heart Score: C/O Chest Pain: No Risk Factors: Risk Factors: DM, Current or recent (<one month) smoker, HTN, HLP, family history of CAD, obesity. Risk Scores: Score 0 - 3: 2.5% MACE over next 6 weeks - Discharge Home Score 4 - 6: 20.3% MACE over next 6 weeks - Admit for Clinical Observation Score 7 - 10: 72.7% MACE over next 6 weeks - Early Invasive Strategies Allergies: Allergies: Allergies Coded Allergies Type Severity Reaction Last Updated Verified codeine Allergy Mild "RASH" 09/25/17 No Physical Exam: PE: Constitutional: Well developed, well nourished, no acute distress, non-toxic appearance. [] HENT: Normocephalic, atraumatic, bilateral external ears normal, oropharynx moist, no oral exudates, nose normal. [] Eyes: PERRLA, EOMI, conjunctiva normal, no discharge. [] Neck: Normal range of motion, no tenderness, supple, no stridor. [] Cardiovascular:Heart rate regular rhythm, no murmur [] Lungs & Thorax: Bilateral breath sounds clear to auscultation [] Abdomen: Bowel sounds normal, soft, no tenderness, no masses, no pulsatile ma sses. [] Skin: Warm, dry, no erythema, no rash. [] Back: No tenderness, no CVA tenderness. [] Extremities: No tenderness, no cyanosis, no clubbing, ROM intact, no edema. [] Neurologic: Alert and oriented X 3, normal motor function, normal sensory function, no focal deficits noted. [] Psychologic: Affect normal, judgement normal, mood normal. [] Current Patient Data: Vital Signs: Vital Signs Date Time Temp Pulse Resp B/P (MAP) Pulse Ox O2 Delivery O2 Flow Rate FiO2 11/16/21 16:08 100.2 128 24 171/79 (109) 97 Room Air 100.2 EKG: EKG: [] Radiology/Procedures: Radiology/Procedures: []EXAMINATION: Chest radiograph. VIEWS: 1 COMPARISON: None INDICATION:41 years, Male, cough. FINDINGS: Normal cardiomediastinal silhouette. Subtle airspace opacity in the right lung base. No pleural effusion or pneumothorax. No acute osseous process. IMPRESSION: Subtle airspace opacity in the right lung base, differential includes atelectatic changes versus pneumonia. Clinical correlation is advised. Electronically signed by: Hubert Barker MD (11/16/2021 6:40 PM) [facility] Course & Med Decision Making: Course & Med Decision Making Pertinent Labs and Imaging studies reviewed. (See chart for details) [] 41-year-old male who presents with cough, sore throat, body aches, fever for 3 days. Patient's heart rate was elevated on arrival, 129, sinus tach. Patient given NS bolus. Temperature on arrival was 100.9. Patient given 600 mg of ibuprofen. Work-up in ER consisted of labs, chest x-ray, EKG, Covid and influenza test. Influenza is negative. Covid test was positive. All other labs unremarkable. Temperature is decreased to 99.3. Patient is still slightly sinus tachycardia, 113. Patient given second, NS bolus. Patient states he feels much better. Denies any complaints at this time. Discussed self quarantining with patient. Advised patient to quarantine for a total of 5 days from onset of symptoms and must also be afebrile without use of antipyretics. Discussed return precautions at length with patient. Patient verbalizes understanding of discharge instructions. Dragon Disclaimer: Dragon Disclaimer: This electronic medical record was generated, in whole or in part, using a voice recognition dictation system. Departure Departure Impression: Primary Impression: Lab test positive for detection of COVID-19 virus Additional Impression: Fever Qualified Codes: R50.9 - Fever, unspecified Disposition: HOME / SELF CARE / HOMELESS Condition: STABLE Referrals: EMILIANO YU MD (PCP) Patient Instructions: Fever, Adult, [id number] Additional Instructions: You were seen in the emergency room for fever, cough. You were given ibuprofen and fluids while in the ER, which improved your symptoms. Your Covid test came back positive. Make sure that you are quarantining for a total of 5 days from onset of symptoms plus fever free without the use of Tylenol or ibuprofen to decrease fever. If you become short of breath, have chest pain, any worsening symptoms or concerns please return to the ER. EMERGENCY DEPARTMENT GENERAL DISCHARGE INSTRUCTIONS Thank you for coming to [facility] Emergency Department (ED) today and trusting us with you care. We trust that you had a positive experience in our Emergency Department. If you wish to speak to the department management, you may call the Director at [phone]. YOUR FOLLOW UP INSTRUCTIONS ARE FOLLOWS: 1. Do you have a private Doctor? If you do not have a private doctor, please ask for a resource list of physicians or clinics that may be able to assist you with follow up care. 2. The Emergency Physicain has interpreted your x-rays. The X-Ray specialist will also review them. If there is a change in the findings, you will be notified in 48 hours when at all possible. 3. A lab test or culture has been done, your results will be reviewed and you will be notified if you need a change in treatment. ADDITIONAL INSTRUCTIONS AND INFORMATION: 1. Your care today has been supervised by a physician who is specially trained in emergency care. Many problems require more than one evaluation for a complete diagnosis and treatment. We recommend that you schedule your follow up appointment as recommended to ensure complete treatment of you illness or injury. If you are unable to obtain follow up care and continue to have a problem, or if your condition worsens, we recommend that you return to the ED. 2. We are not able to safely determine your condition over the phone nor are we able to give sound medical advice over the phone. For these safety reasons, if you call for medical advice we will ask you to come to the ED for further evaluation. 3. If you have any questions regarding these discharge instructions please call the ED at [phone]. SAFETY INFORMATION: In the interest of safety, wellness, and injury prevention; we encourage you to wear your sealbelt, if you smoke; quite smoking, and we encourage family to use a protective helmet for bicycling and other sporting events that present an increased risk for head injury. IF YOUR SYMPTOMS WORSEN OR NEW SYMPTOMS DEVELOP, OR YOU HAVE CONCERNS ABOUT YOUR CONDITION; OR IF YOUR CONDITION WORSENS WHILE YOU ARE WAITING FOR YOUR FOLLOW UP APPOINTMENT; EITHER CONTACT YOUR PRIMARY CARE DOCTOR, THE PHYSICIAN WHOSE NAME AND NUMBER YOU WERE GIVEN, OR RETURN TO THE ED IMMEDIATELY. You have been tested for or diagnosed with COVID-19. It is an infection caused by a new type of coronavirus. COVID-19 will cause cold-like or mild flu symptoms in most. It can cause more severe symptoms like problems breathing in some. There is no treatment for COVID-19. The body will clear the infection over time. Self-care will help to ease discomfort. Steps to Take: Self-Care Rest as needed. Healthy habits may help you feel better. Steps include: Choose healthy foods including fruits and vegetables. Drink water throughout the day. Get plenty of sleep each night. If you smoke, try to quit. It may ease breathing. Avoid alcohol. Keep Others Healthy The virus can spread to others. Droplets are released every time you sneeze or cough. The droplets can get into the mouth, nose, or eyes of people near you and lead to infection. To lower the chances of spreading COVID-19 to others: Stay at home until your doctor has said it is safe to leave. If you tested positive this will mean staying isolated until both of the following are true: At least 7 days have passed since the start of illness. You are free of fever for at least 72 hours without the use of medicine. During this time: - Avoid public areas, events, or transportation. Do not return to work or school until your doctor has said it is safe to do so. - Call ahead if you need to go to a medical center. Let them know you may have COVID-19. It will help them guide you where to go. They may also ask you to wear a facemask when you come to the office. - If you call for emergency medical services, let them know you may have COVID- 19. While at home: - Try to avoid close contact with others. Stay about 6 feet away. - If possible, spend most of your time in a separate room from others. - Use a face mask if you will be in close contact with others such as sharing a room or vehicle. - Have someone wipe down common surfaces in the home. Use household clinical nurse every day on areas like doorknobs, counters, or sinks. - Cough or sneeze into a tissue. Throw the tissue away right after use. If a tissue is not available, cough or sneeze into your elbow. - Wash your hands often. Wash them after sneezing or coughing. Use soap and water and wash for at least 20 seconds. Alcohol based hand housekeeping cleaner can be used if soap and water is not available. - Do not prepare food for others. Avoid sharing personal items like forks, spoons, or toothbrushes. - Avoid close contact with pets while you are sick. There is no evidence of the virus passing to pets. This is a safety step until more is known about this virus. Isolation can be frustrating. Social interaction can help. Keep in touch with friends and family through phone and tech options. You can still interact with others in your home, just keep a safe distance of about 6 feet. Follow-up: Your doctors office will check in with you to see if there are any changes in your health. You may be asked to keep track of symptoms to share with them. They will also let you know when you are clear to be in public again. Problems to Look Out For: Contact your doctor if your recovery is not going as you expect. Get emergency care if you have problems such as: - Trouble breathing - Nonstop chest pain or pressure - Changes in awareness, confusion, or problems waking - Lips or face have bluish color - Worsening of symptoms If you think you have an emergency, call for emergency medical services right away. As taken from [facility] MIN HOANG APRN Nov 16, 2021 17:10
[2021-11-16 17:15] LABS: BASO % 1 % (0-3); EOS % 0 % (0-3); HEMOGLOBIN 15.9 g/dL (13.0-17.5); LYMPH # 0.6 x10^3/uL (1.0-4.8); LYMPH % 8 % (24-48); MEAN CORPUSCULAR HEMOGLOBIN 31 pg (25-35); MEAN CORPUSCULAR HGB CONC 35 g/dL (31-37); MEAN CORPUSCULAR VOLUME 89 fL (79-100); MONO # 1.1 x10^3/uL (0.0-1.1); MONO % 13 % (0-9); NEUT # 6.7 x10^3/uL (1.8-7.7); NEUT % 78 % (31-73); PLATELET COUNT 150 x10^3/uL (140-400); RED BLOOD COUNT 5.19 x10^6/uL (4.30-5.70); RED CELL DISTRIBUTION WIDTH 13.1 % (11.5-14.5); WHITE BLOOD COUNT 8.5 x10^3/uL (4.0-11.0)
[2021-11-16] MEDS ORDERED: IBUPROFEN 200 MG TABLET. PO ONE (17:30)
--- NOTE | 2021-11-16 18:10 | EKG ---
[facility] [address] [place] [address] Test Date: 2021-11-16 Test Time: 17:19:06 Pat Name: EMILIANO GRAY Department: Room: Gender: Laborer Heading: : 1980 Requested By: MIN HOANG Order Number: [id number] Reading MD: Ricardo Cummings Measurements Intervals [place] Rate: 113 P: 40 NV: 142 QRS: 64 QRSD: 76 T: 18 QT: 282 QTc: 392 Interpretive Statements SINUS TACHYCARDIA Electronically Signed On 11-17-2021 14:27:13 PROFILE GRINDER TECHNICIAN by Ricardo Cummings
--- NOTE | 2021-11-16 18:42 | RAD ---
EXAMINATION: Chest radiograph. VIEWS: 1 COMPARISON: None INDICATION:41 years, Male, cough. FINDINGS: Normal cardiomediastinal silhouette. Subtle airspace opacity in the right lung base. No pleural effus ion or pneumothorax. No acute osseous process. IMPRESSION: Subtle airspace opacity in the right lung base, differential includes atelectatic changes versus pneu monia. Clinical correlation is advised. Electronically signed by: Hubert Barker MD (11/16/2021 6:40 PM) [facility]
[2021-11-16 18:48] LABS: INFLUENZA A PATIENT NEGATIVE (NEGATIVE); INFLUENZA B PATIENT NEGATIVE (NEGATIVE)
[2021-11-16 19:04] LABS: CALCIUM 8.1 mg/dL (8.5-10.1); CREATININE 1.3 mg/dL (0.7-1.3); GFR 61.5; POTASSIUM 3.8 mmol/L (3.5-5.1)
[2021-11-16 19:10] LABS: ALBUMIN 3.8 g/dL (3.4-5.0); TOTAL BILIRUBIN 0.3 mg/dL (0.2-1.0); TOTAL PROTEIN 7.5 g/dL (6.4-8.2)
[2021-11-16 21:45] VITALS: BP 123/74
== END 2021-11-16 21:45 | disposition home or self-care (01) ==
LOC: ER 14:40
DX: U07.1 COVID-19 (principal); K21.9 Gastro-esophageal reflux disease without esophagitis; I10 Essential (primary) hypertension; Z88.5 Allergy status to narcotic agent
CPT/HCPCS: 36415; 71045; 80053; 83605; 85025; 87426; 87804; 93005; 96360; 96361; 99285; J7030